=== PATIENT | female | born 1995 | race Caucasian/White ===

== ENCOUNTER 2018-08-30 18:33 | Outpatient (CLI) | payer OTHER ==
--- NOTE | 2018-08-30 20:54 | MRI Report ---
Reason: RADICULOPATHY,CERVICAL REGION,CERVICALGIA,PAIN IN Procedure Date: 08/30/2018 Accession Number: [id number] / [id number] Procedure: MRI - Cervical Spine W/O CPT Code: FULL RESULT: EXAM: MRI CERVICAL SPINE WITHOUT CONTRAST. EXAM DATE: 08/30/2018 07:51 PM. CLINICAL HISTORY: Radiculopathy. Cervical pain. COMPARISONS: None. TECHNIQUE: Multiplanar, multisequence T1-weighted and fluid-sensitive sequences of the cervical spine without contrast. Other: None. FINDINGS: No abnormal T2 hyperintense signal is seen in the cervical spinal cord. No suspicious marrow replacement is seen. Disk space height is preserved throughout the cervical spine. C2-C3, C3-C4, C4-C5: No posterior disk protrusion. C5-C6: There is a minimal left paracentral disk protrusion. C6-C7: No posterior disk protrusion. C7-T1: No posterior disk protrusion. IMPRESSION: 1. A minimal left paracentral disk protrusion is seen at C5-C6. RADIA
== END 2018-08-30 18:34 | disposition home or self-care (01) ==
LOC: DI 18:33
PROVIDERS: ATTEND Family Medicine
DX: M50.122 Cervical disc disorder at C5-C6 level with radiculopathy (principal)
CPT/HCPCS: 72141

== ENCOUNTER 2018-10-20 20:34 | Emergency (ER) | payer OTHER ==
[2018-10-20 20:41] VITALS: BP 121/67
--- NOTE | 2018-10-20 20:50 | ED Physician Documentation ---
PD HPI HEENT - Stated complaint Stated Complaint: SORE THROAT, BUMPS IN THROAT - Chief complaint Chief Complaint: Heent - History obtained from History obtained from: Patient - History of Present Illness Timing - onset: Other (2 Days of sore throat. No runny nose, no cough. She feels a little chilled and fatigued but no measured fevers. No chance of .) Review of Systems Constitutional: reports: Chills, Fatigue Nose: denies: Rhinorrhea / runny nose, Congestion Throat: reports: Sore throat Cardiac: denies: Palpitations Respiratory: denies: Dyspnea, Cough PD PAST MEDICAL HISTORY - Present Medications Home Medications: Ambulatory Orders Medication Instructions Recorded Confirmed Lidocaine Ointment 5% [Xylocaine 1 applic TOP Q4H 10/20/18 10/20/18 Ointment 5%] Nitroglycerin 2% Oin(30G Tube) 1 applic TOP Q4H 10/20/18 10/20/18 [Nitro-Bid 2% Oint (30G Tube)] - Allergies Allergies/Adverse Reactions: Allergies Allergy/AdvReac Type Severity Reaction Status Date / Time No Known Drug Allergies Allergy Verified 10/20/18 20:41 PD ED PE NORMAL - Vitals Vital signs reviewed: Yes - General General: Alert and oriented X 3, No acute distress - HEENT HEENT: Other (Red tonsils and posterior pharynx with cobblestoning, no swelling. No cervical adenopathy.) - Neck Neck: Supple, no meningeal sign, No bony TTP - Neuro Neuro: Alert and oriented X 3, Normal speech Results - Vitals Vitals: Vital Signs - 24 hr 10/20/18 20:37 Temperature 36.4 C L Heart Rate 85 Respiratory 16 Rate Blood Pressure 121/67 O2 Saturation 98 Oxygen O2 Source Room air - Labs Labs: Laboratory Tests 10/20/18 20:50 Group A Strep Rapid Negative Departure - Departure Disposition: 01 Home, Self Care Clinical Impression: Viral sore throat Condition: Good Record reviewed to determine appropriate education?: Yes Instructions: ED Pharyngitis Viral Comments: Your strep test is negative, although this makes a bacterial etiology of your sore throat unlikely we will still culture your throat and call you in a day or 2 if there are any positive findings. Take ibuprofen as needed for pain. Drink plenty fluids. Return if worse or if new symptoms develop. Follow-up with your doctor in a week if not better.
== END 2018-10-20 21:37 | disposition home or self-care (01) ==
LOC: ED 20:34
DX: J02.8 Acute pharyngitis due to other specified organisms (principal); B97.89 Other viral agents as the cause of diseases classified elsewhere
CPT/HCPCS: 87070; 87077; 87430; 99282; 99283